=== PATIENT | male | born 1965 | race Caucasian/White ===

== ENCOUNTER → 2018-07-30 | Outpatient (CLI) | payer BC | END | disposition home or self-care (01) | LOC: OIH 13:20 | PROVIDERS: ATTEND Family Medicine | DX: J40 Bronchitis, not specified as acute or chronic (principal) | CPT/HCPCS: 71046 ==

== ENCOUNTER → 2018-08-09 | Outpatient (CLI) | payer BC ==
[2018-08-09 10:08] LABS: INR 0.96 (0.85-1.15); PARTIAL THROMBOPLASTIN TIME 27.7 SEC (26.3-35.5); PROTHROMBIN TIME 10.1 SEC (9.6-11.6)
--- NOTE | 2018-08-09 10:50 | NUR ---
U/S GD BX RIGHT LYMPH NODE PROCEDURE PERFORMED BY DR SCHWARZ . PUNCTURE SITE RIGHT SIDE OF THE NECK AND PATIENT TOLERATED PROCEDURE WELL. SPECIMEN X 3 COLLECTED AND SENT TO LAB. END OF PROCEDURE AT 1100. BIOPSY NEEDLE REMOVED AND DRESSING APPLIED. NO BLEEDING NOTED. DISCHARGE INSTRUCTIONS GIVEN TO PATIENT AND VERBALIZED UNDERSTANDING. DISCHARGED AMBULATORY. STABLE, AAO X3 WITH NO C/O PAIN.
== END | disposition home or self-care (01) ==
LOC: RAH 09:11 → EDUNIT# 10:00
PROVIDERS: ATTEND Family Medicine
DX: C77.0 Secondary and unspecified malignant neoplasm of lymph nodes of head, face and neck (principal); C80.1 Malignant (primary) neoplasm, unspecified; Z79.899 Other long term (current) drug therapy; Z79.01 Long term (current) use of anticoagulants
CPT/HCPCS: 36415; 38505; 76942; 85610; 85730; 88305; A4215 ×2